=== PATIENT | female | born 1975 | race Caucasian/White ===

== ENCOUNTER 2017-09-13 11:55 | Emergency (ER) | payer SELFPAY ==
[2017-09-13] MEDS ORDERED: SODIUM CHLORIDE 0.9% (FLUSH) 10 ML SYG IV PRN (12:24)
[2017-09-13] MEDS ORDERED: SODIUM CHLORIDE 0.9% 1000ML 1,000 ML IVS ONE (12:25)
--- NOTE | 2017-09-13 12:28 | ED.PDOC ---
History of Present Illness - General Chief Complaint: Cardiovascular Problem Stated Complaint: Low heart rate Time Seen by Provider: 09/13/17 12:24 Source: patient Exam Limitations: no limitations - History of Present Illness Initial Comments: PT REPORTS SUDDEN ONSET OF DIZZINESS AFTER HAVING BLOOD DRAWN AT THE CLINIC TODAY. PT HAD A NEAR SYNCOPAL EPISODE. PT HAS A HISTORY OF RECENT HEAVY BLEEDING WHICH IS WHY SHE WAS GETTING BLOODWORK DONE. PT DENIES COMPLAINTS AT THIS TIME. PT WAS FOUND TO BE BRADYCARDIC AT CLINIC AFTER EPISODE OCCURRED, HOWEVER, NOW HAS HR IN THE 80S Severity: moderate Improving Factors: nothing Worsening Factors: nothing Allergies/Adverse Reactions: Allergies NO KNOWN ALLERGY Allergy (Verified 09/13/17 11:59) Home Medications: Ambulatory Orders Paroxetine HCl [Paxil] 20 mg PO DAILY 09/13/17 Review of Systems - Review of Systems Constitutional: Denies: chills, fever EENTM: Denies: double vision, nose congestion Respiratory: Denies: cough, short of breath Cardiology: States: syncope. Denies: chest pain, palpitations Gastrointestinal/Abdominal: Denies: abdominal pain, diarrhea, vomiting Genitourinary: States: other - HEAVY VAGINAL BLEEDING. Denies: dysuria, frequency Musculoskeletal: Denies: back pain, joint swelling Skin: Denies: dryness, lesions Neurological: Denies: headache, numbness Endocrine: States: no symptoms reported Hematologic/Lymphatic: States: no symptoms reported Past Medical History (General) - Patient Medical History Hx Stroke: No Hx Congestive Heart Failure: No Hx Diabetes: No Surgical History: no surgical history - Vaccination History Hx Influenza Vaccination: No Hx Pneumococcal Vaccination: No - Social History Hx Tobacco Use: Yes - Quit 2009 - Female History Patient is a Female of Child Bearing Age (10 -59 yrs old): Yes Patient : No - Triage Comment ED Triage Comment: Pt has continued to have a menstrual cycle since 07/26/17 Family Medical History - Family History Mother Living Status: Still Living Hx Family Hypertension: Yes Physical Exam - Physical Exam General Appearance: Alert, No apparent distress, Obese, Well Groomed, Well Hydrated Eye Exam: bilateral normal Ears, Nose, Throat: hearing grossly normal, normal ENT inspection Respiratory: lungs clear, normal breath sounds Cardiovascular/Chest: regular rate, rhythm, no murmur Gastrointestinal/Abdominal: non tender, soft Back Exam: normal inspection Extremity: non-tender, normal inspection Neurologic: alert, normal mood/affect, oriented x 3 Skin Exam: warm/dry, pallor Progress - Progress Progress: 09/13/17 13:45 PT RESTING COMFORTABLY ON RE-ASSESSMENT. NO COMPLAINTS, BP IMPROVED AFTER IV NS. LABS DISCUSSED. - Results/Orders Results/Orders: 09/13/17 12:24 IV Care:Saline Lock per Protoc QSHIFT Telemetry .ONCE Sodium Chloride 0.9% (Flush) [Saline Flush Syringe] 10 ml IV PRN PRN EKG Stat Pulse Ox Stat Laboratory Results - last 24 hr 09/13/17 12:38 WBC 8.7 RBC 4.10 L Hgb 11.0 L Hct 33.4 L MCV 81.5 MCH 26.8 L MCHC 32.8 L RDW 16.9 H Plt Count 345 MPV 7.1 L Absolute Neuts (auto) 4.90 Absolute Lymphs (auto) 3.00 Absolute Monos (auto) 0.60 Absolute Eos (auto) 0.10 Absolute Basos (auto) 0.10 Neutrophils % 56.5 Lymphocytes % 34.2 Monocytes % 7.5 Eosinophils % 0.8 L Basophils % 1.0 PT 12.4 INR 1.070 PTT (SP) 26.2 Sodium 137 Potassium 3.5 L Chloride 106 Carbon Dioxide 23 Anion Gap 11.5 L BUN 12 Creatinine 0.75 BUN/Creatinine Ratio 16.0 Random Glucose 111 H Serum Osmolality 274.3 L Calcium 8.4 Magnesium 2.0 Total Bilirubin 0.3 Direct Bilirubin < 0.1 Indirect Bilirubin 0.2 AST 13 ALT 12 Alkaline Phosphatase 74 Creatine Kinase 60 CK-MB (CK-2) 1.1 CK-MB (CK-2) % Not Reportable Troponin I < 0.02 Serum Total Protein 7.1 Albumin 3.5 - EKG/XRAY/CT EKG: Sinus - 66BPM, NL INTERVALS, NL AXIS, no ST T wave changes - NO OLD EKG FOR COMPARISON Departure - Departure Clinical Impression: Vasovagal near syncope Time of Disposition: 13:47 Disposition: Discharge to Home or Self Care Condition: Good Departure Forms: ED Discharge - Pt. Copy, Patient Portal Self Enrollment Instructions: DI for Syncope in Adults (Fainting) Referrals: Ivan Enrique MD [Primary Care Provider] - 1-5 Days Home Medications: Ambulatory Orders Paroxetine HCl [Paxil] 20 mg PO DAILY 09/13/17
[2017-09-13 14:09] VITALS: BP 130/50; TEMP 98; O2SAT 100
== END 2017-09-13 14:11 | disposition home or self-care (01) ==
LOC: ER 11:55
DX: R55 Syncope and collapse (principal); Z87.891 Personal history of nicotine dependence
CPT/HCPCS: 36415; 80048; 80076; 82550; 82553; 84484; 85025; 85610; 85730; 93005; 94760; J7030